=== PATIENT | male | born 1990 | race African-American/Black ===

== ENCOUNTER 2016-03-06 11:53 | Emergency (ER) | payer OTHER ==
[~2016-03-06] VITALS: Ht 195.6 cm; Wt 81.6 kg
[2016-03-06 14:27] VITALS: BP 139/89
[2016-03-06] MEDS ORDERED: KETOROLAC TROMETH 60MG/2ML VIAL IM ONE (15:00)
== END 2016-03-06 14:53 | disposition home or self-care (01) ==
LOC: ER 12:01
DX: S01.511A Laceration without foreign body of lip, initial encounter (principal); F12.10 Cannabis abuse, uncomplicated; X58.XXXA Exposure to other specified factors, initial encounter; Y93.89 Activity, other specified; Y99.9 Unspecified external cause status; Y92.89 Other specified places as the place of occurrence of the external cause
CPT/HCPCS: 70450; 96372; 99284; J1885